=== PATIENT | male | born 1955 | race African-American/Black ===

== ENCOUNTER 2017-05-19 05:39 | Inpatient (IN) ==
[2017-05-12 09:46] LABS: Basophils % 0.6 % (0.0-0.8); Eosinophils # 0.3 10*3/uL (0.0-0.87); Eosinophils % 3.8 % (0.00-10.9); Hemoglobin 15.3 GM/DL (14.0-18.0); Immature Granulocytes % 0.6 %; Immature Granulocytes Absolute 0.04 #; Lymphocytes # 2.8 10*3/uL (1.4-4.0); Lymphocytes % 41.1 % (21.2-54.2); Mean Corpuscular HGB Conc 33.3 GM/DL (32-36); Mean Corpuscular Hemoglobin 31 PG (27-34); Mean Corpuscular Volume 93.3 FL (87-102); Mean Platelet Volume 10.3 FL (9.6-12.0); Monocytes # 0.6 10*3/uL (0.11-0.8); Monocytes % 8.2 % (1.7-12.7); Neutrophils # 3.1 10*3/uL (1.4-7.4); Neutrophils % 45.7 % (38.7-73.9); Platelet Count 380 T/CUMM (130-400); Red Blood Count 4.93 MC/CUMM (3.8-5.5); Red Cell Distribution Width 14.6 % (9.3-17.3); White Blood Count 6.8 T/CUMM (4-12)
[2017-05-12 11:46] LABS: Calcium 9.2 MG/DL (8.5-10.1); Osmolality,Calculated 280.1 MOS/KG (273-304); Potassium 4.2 MMOL/L (3.5-5.1)
[2017-05-19] MEDS ORDERED: cefTRIAXone 1,000 MG VIAL ONE (06:01)
[2017-05-19] MEDS ORDERED: SODIUM CHLORIDE 0.9% 50 ML IV ONE (06:01)
[2017-05-19] MEDS ORDERED: SODIUM PHOSPHATE ENEMA 133 ML BOTTLE RECTAL ONE (06:02)
[2017-05-19] MEDS ORDERED: ALVIMOPAN 12 MG CAPSULE ONE (07:10)
[2017-05-19] MEDS: LACTATED RINGERS 1,000 ML IV SCH ×2 (07:11→09:45)
[2017-05-19] MEDS ORDERED: GLYCOPYRROLATE 0.4 MG/2 ML VIAL ONE (07:15)
[2017-05-19] MEDS ORDERED: LIDOCAINE 1% 5 ML VIAL ONE (07:15)
[2017-05-19] MEDS ORDERED: PROPOFOL 200 MG/20 ML VIAL IV ONE (07:15)
[2017-05-19] MEDS ORDERED: DEXAMETHASONE 10 MG/1 ML VIAL ONE (07:15)
[2017-05-19] MEDS ORDERED: PHENYLEPHRINE 1 MG/10 ML SYRINGE IV ONE (07:15)
[2017-05-19] MEDS ORDERED: NEOSTIGMINE 10 MG/10 ML VIAL ONE (07:15)
[2017-05-19] MEDS ORDERED: ONDANSETRON 4 MG/2 ML VIAL ONE ×2 (07:15→12:30)
[2017-05-19] MEDS ORDERED: ALBUMIN 5% 12.5 GM/250 ML VIAL IV ONE ×2 (07:15→07:16)
[2017-05-19] MEDS ORDERED: ROCURONIUM 100 MG/10 ML VIAL IV ONE (07:15)
[2017-05-19] MEDS ORDERED: ALVIMOPAN 12 MG CAPSULE PO SCH (08:00)
[2017-05-19] MEDS ORDERED: SODIUM PHOSPHATE ENEMA 133 ML BOTTLE RECTAL SCH (08:00)
[2017-05-19 08:47] LABS: Apearance,Urine Slightly Hazy (Clear); Bilirubin,Urine Negative (Negative); Blood, Urine Large mg/dL (Negative); Glucose,Urine (UA) Negative (Negative); Hyaline Casts,Urine 1 /LPF (0-3); Ketones,Urine Negative (Negative); Mucus,Urine Occasional /LPF (Occasional); Nitrite,Urine Negative (Negative); Protein,Urine Negative; RBC,Urine 48 /HPF (0-4); Squamous Epithelial Cell,Urine Occasional /HPF (0-10); Urine Color Yellow (Yellow); Urine Specific Gravity 1.018 (1.001-1.035); Urine Urobilinogen < 2.0 EU/DL (0.2-1.0); WBC,Urine 4 /HPF (0-6)
[2017-05-19] MEDS ORDERED: ONDANSETRON 4 MG/2 ML VIAL IV PRN ×2 (11:51→12:25)
[2017-05-19] MEDS ORDERED: HYDROmorphone PCA 30 MG/30 ML SYRINGE IV SCH (12:00)
[2017-05-19] MEDS ORDERED: ACETAMINOPHEN 1,000 MG/100 ML VIAL IV ONE (12:17)
[2017-05-19] MEDS ORDERED: MIDAZOLAM 2 MG/2 ML VIAL ONE (12:17)
[2017-05-19] MEDS ORDERED: SUFentanil 50 MCG/ML AMP ONE (12:17)
[2017-05-19] MEDS ORDERED: LACTATED RINGERS 1,000 ML IV ONE (12:17)
[2017-05-19] MEDS ORDERED: SEVOFLURANE 1 UNIT/15 MINUTE INH ONE (12:18)
[2017-05-19] MEDS ORDERED: HYDROmorphone 2 MG/1 ML VIAL ONE (12:29)
[2017-05-19] MEDS: HYDROmorphone 2 MG/1 ML VIAL IV PRN ×4 (12:30→12:55)
[2017-05-19] MEDS: OXYBUTYNIN XL 10 MG TABLET PO SCH (14:28)
[2017-05-19] MEDS: DEXTROSE 5% NACL 0.45% 1,000 ML IV SCH (14:29)
[2017-05-19] MEDS ORDERED: hydrALAZINE 20 MG/1 ML VIAL IV PRN (15:47)
[2017-05-19] MEDS: LACTULOSE 20 GM/30 ML UDCUP PO SCH (21:50)
[2017-05-19] MEDS: ALVIMOPAN 12 MG CAPSULE PO SCH (21:50)
[2017-05-19] MEDS: amLODIPine 10 MG TABLET PO SCH (21:50)
[2017-05-19] MEDS: SIMVASTATIN 40 MG TABLET PO SCH (21:50)
[2017-05-20 07:24] LABS: Basophils % 0.1 % (0.0-0.8); Hematocrit 37.2 VOL% (42.0-52.0); Hemoglobin 12.4 GM/DL (14.0-18.0); Immature Granulocytes % 0.6 %; Immature Granulocytes Absolute 0.06 #; Lymphocytes # 1.6 10*3/uL (1.4-4.0); Lymphocytes % 14.6 % (21.2-54.2); Mean Corpuscular HGB Conc 33.3 GM/DL (32-36); Mean Corpuscular Hemoglobin 31 PG (27-34); Mean Corpuscular Volume 92.3 FL (87-102); Mean Platelet Volume 11.3 FL (9.6-12.0); Monocytes # 1.3 10*3/uL (0.11-0.8); Monocytes % 12.5 % (1.7-12.7); Neutrophils # 7.7 10*3/uL (1.4-7.4); Neutrophils % 72.2 % (38.7-73.9); Platelet Count 298 T/CUMM (130-400); Red Blood Count 4.03 MC/CUMM (3.8-5.5); Red Cell Distribution Width 14.9 % (9.3-17.3); White Blood Count 10.7 T/CUMM (4-12)
[2017-05-20 08:00] LABS: Calcium 8.1 MG/DL (8.5-10.1); Osmolality,Calculated 278.7 MOS/KG (273-304); Potassium 4.2 MMOL/L (3.5-5.1)
[2017-05-20] MEDS ORDERED: oxyCODONE/ACETAMINOPHEN 5-325 MG TABLET PO PRN (08:45)
[2017-05-20] MEDS ORDERED: MEPERIDINE 50 MG/1 ML VIAL IM PRN (08:46)
[2017-05-20] MEDS: DEXTROSE 5% NACL 0.45% 1,000 ML IV SCH (10:14)
[2017-05-20] MEDS: LACTATED RINGERS 1,000 ML IV SCH (10:15)
[2017-05-20] MEDS: LACTULOSE 20 GM/30 ML UDCUP PO SCH ×2 (10:21→22:47)
[2017-05-20] MEDS: ALVIMOPAN 12 MG CAPSULE PO SCH ×2 (10:21→22:47)
[2017-05-20] MEDS: OXYBUTYNIN XL 10 MG TABLET PO SCH (10:21)
[2017-05-20] MEDS: NICOTINE 14 MG/24 HR PATCH TRANSDERM SCH (16:32)
[2017-05-20] MEDS: oxyCODONE/ACETAMINOPHEN 5-325 MG TABLET PO PRN (18:37)
[2017-05-20] MEDS: SIMVASTATIN 40 MG TABLET PO SCH (22:47)
[2017-05-20] MEDS: amLODIPine 10 MG TABLET PO SCH (22:47)
[2017-05-21] MEDS: oxyCODONE/ACETAMINOPHEN 5-325 MG TABLET PO PRN (07:51)
[2017-05-21 08:18] VITALS: BP 117/70
[2017-05-21] MEDS: OXYBUTYNIN XL 10 MG TABLET PO SCH (08:59)
[2017-05-21] MEDS: LACTULOSE 20 GM/30 ML UDCUP PO SCH (08:59)
[2017-05-21] MEDS: NICOTINE 14 MG/24 HR PATCH TRANSDERM SCH (08:59)
[2017-05-21] MEDS: ALVIMOPAN 12 MG CAPSULE PO SCH (08:59)
[2017-05-21] MEDS ORDERED: BISACODYL 10 MG SUPP RECTAL ONE (10:44)
[2017-05-21] MEDS ORDERED: NICOTINE 14 MG/24 HR PATCH TRANSDERM SCH (17:00)
== END 2017-05-21 12:40 | disposition home or self-care (01) | DRG 707 ==
LOC: N.OR 05:39 → N.SDSINP 05:41 → N.5E 09:02
PROVIDERS: ADMIT Urology; ATTEND Urology